=== PATIENT | male | born 1965 | race Caucasian/White ===

== ENCOUNTER → 2017-02-16 | Outpatient (CLI) | payer BC ==
[~2017-02-16] MED LIST: ALLO300T2 PO; ASPI1TAB83 PO; ATOR80TA PO; GLIM2TAB2 PO; LISI-461 PO; LORA10TA5 PO; MULTTAB58 PO; NITR0.4S UT; OMEGCAP2 PO
[2017-02-16 19:07] LABS: BASO % 0.6 %; BASO ABS # 0.06 K/uL (0-0.2); COMPLETE YES; EOS % 1.4 %; IG% 0.1 %; LYMPH % 25.2 %; LYMPH ABS # 2.53 K/uL (1.2-3.4); MEAN CELL VOLUME 93.6 fL (80-100); MEAN CORPUSCULAR HEMOGLOBIN 31.9 pg (25-34); MEAN CORPUSCULAR HGB CONC 34.1 g/dl (32-36); MEAN PLATELET VOLUME 10.6 fL (7.4-10.4); MONO % 6.1 %; NEUT % 66.6 %; PLATELET COUNT 193 K/uL (130-400); WHITE BLOOD COUNT 10.04 K/uL (4.8-10.8)
[2017-02-16 19:21] LABS: ALT/SGPT 48 U/L (12-78); AST/SGOT 21 U/L (15-37); BLOOD UREA NITROGEN 15 mg/dl (7-18); BUN/CREATININE RATIO 19.5 (10-20); CALCIUM 8.8 mg/dl (8.5-10.1); CARBON DIOXIDE 31 mmol/L (21-32); CHLORIDE 102 mmol/L (98-107); CREATININE 0.78 mg/dl (0.60-1.40); GLUCOSE 80 mg/dl (70-99); POTASSIUM 4.1 mmol/L (3.5-5.1); SODIUM 141 mmol/L (136-145)
[2017-02-16 19:26] LABS: ALB/GLOB RATIO 1.6 (0.9-2); ALKALINE PHOSPHATASE 83 U/L (45-117); CHOLESTEROL 112 mg/dl (0-200); CHOLESTEROL/HDL RATIO 2.3; HDL CHOLESTEROL 48 mg/dl; LDL CHOLESTEROL CALCULATED 48 mg/dl; PROSTATE SPECIFIC ANTIGEN 0.363 ng/ml (0.000-4.000); TRIGLYCERIDES 79 mg/dl (0-150); VERY LOW DENSITY LIPOPROT CALC 16 mg/dl
[2017-02-18 06:44] LABS: ESTIMATED AVERAGE GLUCOSE 134 mg/dl; HA1C FLAG Normal (Normal)
== END | disposition home or self-care (01) ==
LOC: C.LAB 18:10
PROVIDERS: ATTEND Internal Medicine
DX: D64.9 Anemia, unspecified (principal); I25.10 Atherosclerotic heart disease of native coronary artery without angina pectoris; E11.9 Type 2 diabetes mellitus without complications; Z12.5 Encounter for screening for malignant neoplasm of prostate

== ENCOUNTER → 2017-05-18 | Outpatient (CLI) | payer BC ==
[2017-05-18 10:50] LABS: BASO % 0.5 %; BASO ABS # 0.04 K/uL (0-0.2); COMPLETE YES; EOS % 3.2 %; IG% 0.1 %; LYMPH % 25.6 %; LYMPH ABS # 1.94 K/uL (1.2-3.4); MEAN CELL VOLUME 95.6 fL (80-100); MEAN CORPUSCULAR HEMOGLOBIN 31.3 pg (25-34); MEAN CORPUSCULAR HGB CONC 32.8 g/dl (32-36); MEAN PLATELET VOLUME 10.9 fL (7.4-10.4); MONO % 6.6 %; PLATELET COUNT 190 K/uL (130-400); WHITE BLOOD COUNT 7.57 K/uL (4.8-10.8)
[2017-05-18 11:08] LABS: ALT/SGPT 32 U/L (12-78); AST/SGOT 16 U/L (15-37); BLOOD UREA NITROGEN 19 mg/dl (7-18); BUN/CREATININE RATIO 25.9 (10-20); CALCIUM 8.8 mg/dl (8.5-10.1); CARBON DIOXIDE 28 mmol/L (21-32); CHLORIDE 107 mmol/L (98-107); CREATININE 0.74 mg/dl (0.60-1.40); GLUCOSE 85 mg/dl (70-99); SODIUM 140 mmol/L (136-145)
[2017-05-18 11:09] LABS: ESTIMATED AVERAGE GLUCOSE 128 mg/dl; HA1C FLAG Normal (Normal)
[2017-05-18 11:19] LABS: ALB/GLOB RATIO 1.5 (0.9-2); ALKALINE PHOSPHATASE 83 U/L (45-117)
[2017-05-18 11:23] LABS: RATIO 8.3 mcg/mg (0-30.0)
[2017-05-18 11:58] LABS: LYME DISEASE AB IGM NEG (NEG)
[2017-05-18 11:59] LABS: LYME DISEASE AB IGG NEG (NEG)
== END | disposition home or self-care (01) ==
LOC: C.LABBC 09:00
PROVIDERS: ATTEND Internal Medicine
DX: I10 Essential (primary) hypertension (principal); E11.9 Type 2 diabetes mellitus without complications; Z79.4 Long term (current) use of insulin; K76.0 Fatty (change of) liver, not elsewhere classified; D64.9 Anemia, unspecified

== ENCOUNTER → 2017-08-30 | Outpatient (CLI) | payer BC ==
--- NOTE | 2017-08-30 11:02 | DIAGNOSTIC IMAGING REPORT ---
R SHOULDER MIN 2 VIEWS ROUTINE HISTORY: 52 years-old Male Pain in right shoulderRight acute right shoulder pain without known injury COMPARISON: Chest radiograph 05/09/2015 TECHNIQUE: 3 views of the right shoulder FINDINGS: Prior median sternotomy. Surgical clips project over the right upper lobe. Soft tissues are unremarkable. There is mild acromioclavicular and glenohumeral osteoarthritis. No acute fracture or dislocation is identified. No definite intra-articular loose body. 4 mm corticated bony fragment inferior to the glenoid may reflect remote fracture or fragmented osteophyte. IMPRESSION: 1. Mild degenerative changes of the shoulder as above without acute fracture or dislocation. 2. 4 mm corticated bone fragment inferior to the glenoid may reflect remote bony Bankart or fragmented osteophyte. The above report was generated using voice recognition software. It may contain grammatical, syntax or spelling errors. Electronically signed by: Roberto Llanos M.D. 08/30/2017 11:01 AM Dictated Date/Time: 08/30/2017 10:59 AM
[2017-08-30 13:55] LABS: ESTIMATED AVERAGE GLUCOSE 134 mg/dl; HA1C FLAG Normal (Normal)
[2017-08-30 16:17] LABS: LYME DISEASE AB IGG NEG (NEG); LYME DISEASE AB IGM NEG (NEG)
== END | disposition home or self-care (01) ==
LOC: C.RADBC 10:33
PROVIDERS: ATTEND Nurse Practitioner Adult Health
DX: M25.511 Pain in right shoulder (principal); E11.9 Type 2 diabetes mellitus without complications; M79.1 Myalgia; M25.50 Pain in unspecified joint

== ENCOUNTER → 2017-09-04 | Outpatient (CLI) | payer BC ==
[2017-09-04 11:54] LABS: RHEUMATOID FACTOR < 10.0 U/mL (0-15)
== END | disposition home or self-care (01) ==
LOC: C.LABBC 07:03
PROVIDERS: ATTEND Nurse Practitioner Adult Health
DX: M79.1 Myalgia (principal); M25.50 Pain in unspecified joint

== ENCOUNTER 2023-04-30 05:58 | Observation (INO) ==
--- NOTE | 2023-04-18 12:12 | Anesthesiology Consultation ---
Date of Service April 18, 2023 Assessment & Plan (1) Encounter for pre-operative examination: Chart Review Chart Review: Acceptable Risk for Surgery and Patient NOT seen in Pre Admission Testing - Check BSG AM DOS -COVID screening: Per PAT nursing assessment on 04/18/23. No known COVID-19 positive contacts or current COVID-19 related symptoms. Travel screen negative. Patient vaccinated for Covid. At surgeon discretion if preop Covid testing being done. Cardiac letter 04/12/23= Moderate risk for cardiac complications during proposed surgery. Beta-blockers are to be continued during perioperative period. Continue aspirin 81 mg p.o. daily. Okay to hold Plavix x3 days prior to procedure. Resume as soon as possible after procedure per surgical team. (S urgeon continue ASA 81mg perioperatively pre records) Right knee arthroscopy 05/29/22= Done under [facility] with LMA #5. Atraumatic x 1 attempt History Surgery Operation Date: 04/30/23 12:20 Proposed Procedures p Hand Assisted Laparoscopic Nephrectomy - Right - Bennyer Wilfred Juarez MD Height/Weight Height: 5 ft 8 in Weight: 86.183 kg Allergies Allergy/AdvReac Type Severity Reaction Status Date / Time No Known Allergies Allergy Unknown Verified 04/18/23 10:55 Medications Home Medications Medication Instructions Recorded Confirmed Last Taken coenzyme Q10 100 mg capsule 200 mg PO BID 03/17/19 04/18/23 Unknown cyanocobalamin (vitamin B-12) 1,000 mcg PO QPM 03/17/19 04/18/23 05/28/22 1,000 mcg capsule multivitamin (Daily Multi-Vitamin 1 tab PO QPM 03/17/19 04/18/23 05/28/22 tablet) nitroglycerin 0.4 mg sublingual 0.4 mg sublingual Q5M PRN chest 03/17/19 04/18/23 Unknown tablet pain #100 tabs aspirin 81 mg tablet 81 mg PO QAM 12/20/19 04/18/23 05/28/22 cholecalciferol (vitamin D3) 50 5,000 unit PO QPM 10/02/21 04/18/23 Unknown mcg (2,000 unit) capsule loratadine 10 mg tablet 10 mg PO QAM 05/22/22 04/18/23 05/28/22 omega 9-eti-njk-fish oil 100 1 cap PO QAM 07/23/22 04/18/23 Unknown mg-160 mg-1,000 mg capsule (Fish Oil) empagliflozin 25 mg tablet 25 mg PO QAM #90 tabs 11/23/22 04/18/23 Unknown (Jardiance) metformin 1,000 mg tablet 1,000 mg PO BID #180 tabs 12/19/22 04/18/23 Unknown semaglutide 1 mg/dose (4 mg/3 mL) 1 mg (0.75 mL) subcut Q7D #9 mL 01/09/23 04/18/23 Unknown subcutaneous pen injector tadalafil 20 mg tablet (Cialis) 20 mg PO DAILY PRN sexual activity 01/21/23 0 04/18/23 Unknown #20 tabs FreeStyle Skylar 2 Sensor (flash #6 ea 02/01/23 Unknown glucose sensor) metoprolol tartrate 25 mg tablet 25 mg PO BID #180 tabs 02/22/23 04/18/23 Unknown duloxetine 20 mg capsule,delayed 20 mg PO QPM #90 caps 04/15/23 04/18/23 Unknown release allopurinol 300 mg tablet 300 mg PO QAM 04/18/23 04/18/23 Unknown atorvastatin 80 mg tablet 80 mg PO QAM 04/18/23 04/18/23 Unknown clopidogrel 75 mg tablet (Plavix) 75 mg PO QAM 04/18/23 04/18/23 Unknown ezetimibe 10 mg tablet 10 mg PO QAM 04/18/23 04/18/23 Unknown insulin NPH isoph U-100 human 100 30 unit subcut HS 04/18/23 04/18/23 Unknown unit/mL (3 mL) subcutaneous pen (Humulin N NPH U-100 Insulin KwikPen) omeprazole 40 mg capsule,delayed 40 mg PO QAM 04/18/23 04/18/23 Unknown release Past Medical History Medical History (Updated 04/18/23 @ 16:24 by Yolanda Shepherd PA-C) Anemia Arteriosclerotic cardiovascular disease s/p 2 stents 2004 s/p CABG x 3 around 2009 (previous stents in stent stenosis per patient) s/p ESTEFANY 09/19/2022 [facility] to [facility] Diabetes mellitus, type 2 IDDM- insulin pump in place Diabetic peripheral neuropathy GERD without esophagitis controlled, stable per pt Gout, joint History of COVID-winter - lost taste, smell, cold like symptoms, headache, fatigue - reso lved Hypertension controlled, stable per pt Immunotherapy currently having done at [facility] on a monthly schedule Mediastinal lymphadenopathy Metastatic cancer to lung following with Dr Condon and [facility] in [place], [place] Obesity (BMI 30.0-34.9) Obstructive sleep apnea cpap has since been recalled and patient reports he has lost ~30lbs and has since not been using. 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, 2022 Steatosis of liver Past Family History Family History Father Myocardial infarction, Onset Age: 36 Bladder cancer Brother Coronary heart disease Mother Coronary heart disease Diabetes Hypertension Atrial fibrillation Grandmother (Maternal) Colon obstruction Other Diabetes mellitus, type 2 Dyslipidemia Ovarian cancer Denies family history of Prostate cancer Lung cancer Colorectal cancer Past Surgical History Surgical History (Updated 04/18/23 @ 16:14 by Yolanda Shepherd PA-C) History of bronchoscopy with Dr Condon at [facility] History of cardiac cath Chest pain and SOB - transferred from [facility] at age 40 - [facility] - 2 stent placed History of cardiac cath September 2022 at [facility] with x1 stent placed. follows with Dr. Colón. History of coronary artery bypass graft 45 years old - triple bypass History of esophagogastroduodenoscopy (EGD) History of orthopedic surgery right femur repair at age 15 Hx of colonoscopy Hx of heart artery stent x2 right coronary artery - age 40 at [facility] x1 September 2022 at [facility]. Hx of tonsillectomy S/P ACL reconstruction p Right Knee Arthroscopy, Allograft Anterior Cruciate Ligament Reconstruction, Partial Medial Meniscectomy S/P rotator cuff repair left 09/2020 [facility]. Status post biopsy of kidney Fall 2021 with [facility] Social History Smoking Status: Never smoker Do You Dip or Chew Tobacco: No Hx Alcohol Use: Yes Alcohol type: beer and hard liquor alcohol intake frequency: holidays/special occasions only Hx Substance Use: No substance use type: does not use Testing Laboratory Results 04/10/23= URINE CULTURE: No growth- less than 1000 colonies/ml 04/08/23= WBC: 7.8 H/H: 15.6/48.0 PLATELETS: 204 SODIUM: 136 POTASSIUM: 4.8 CHLORIDE: 103 CO2: 31.0 BUN: 20.0 CREATININE: 0.90 GLUCOSE: 186 04/01/23= TSH: 1.580 FREE T4: 0.81 Electrocardiogram Date: 09/19/22 Findings: + NSR @ (60bpm) Cannot rule out anterior infarct, age undetermined Stress Test Date: 09/14/22 Type: nuclear Moderately abnormal MPI study Moderate sized ischemia in the mid to basal inferior segments Normal LV function with mid to basal inferior hypokinesis (Patient had subsequent cardiac catheterizationwith ESTEFANY placementsee below) Cardiac Catheterization Date: 09/19/22 33 bypass grafts patent (ALBRECHT to LAD; SVG to diagonal; free KASANDRA to PDA). Severe stenosis of proximal circumflex which was not grafted status post PCI successful with ESTEFANY to 0% residual. Normal left-sided filling pressure No aortic stenosis. Recommendations: Dual antiplatelet therapy for target at least 6 months if not longer Other Testing Chest CT 03/21/2023 = since November 2022no new suspicious findings in the chest. Unchanged right upper renal pole neoplasm.
[2023-04-30] MEDS ORDERED: LR 15ML/HR IV SCH (06:00)
[2023-04-30] MEDS ORDERED: DexMEDEtomidine HCL IV 100 MCG/ML VIAL IV ONE (06:51)
[2023-04-30] MEDS ORDERED: ONDANSETRON INJ 2 MG/ML 2 ML VIAL IV PRN ×2 (07:06→11:07)
[2023-04-30] MEDS ORDERED: ATROPINE SULFATE 0.1 MG/ML 10ML SYR IV PRN (07:06)
[2023-04-30] MEDS ORDERED: ePHEDrine sulfate 50 MG/ML AMP IV PRN (07:06)
[2023-04-30] MEDS ORDERED: MIDAZOLAM HCL 1 MG/ML 2ML VIAL ONE (07:08)
[2023-04-30] MEDS ORDERED: fentaNYL citrate PF 100 MCG/2 ML VIAL ONE ×2 (07:08→08:52)
[2023-04-30] MEDS ORDERED: ROCURONIUM BROMIDE 10 MG/ML 5 ML VIAL IV ONE ×3 (07:15→08:40)
--- NOTE | 2023-04-30 07:22 | History & Physical Bridge Note ---
Date of Service April 30, 2023 History & Physical Bridge Note I have examined the patient, reviewed the History & Physical and in the interval since the performance of the History & Physical I have noted the following changes of clinical significance: no changes noted
[2023-04-30] MEDS ORDERED: BUPIVACAINE 0.5 % 5 MG/1 ML MPF 30ML VIAL ONE (07:24)
[2023-04-30] MEDS ORDERED: ONDANSETRON INJ 2 MG/ML 2 ML VIAL ONE (08:40)
[2023-04-30] MEDS ORDERED: DEXAMETHASONE SOD INJ 4 MG/ML VIAL ONE (08:40)
[2023-04-30] MEDS ORDERED: GLYCOPYRROLATE 0.2 MG/ML VIAL ONE (08:40)
[2023-04-30] MEDS ORDERED: PROPOFOL IV EMULSION 10 MG/ML 20 ML VIAL IV ONE (08:40)
[2023-04-30] MEDS ORDERED: LIDOCAINE 2% 2 ML VIAL/AMP(20MG/ML) INFIL ONE (08:40)
[2023-04-30] MEDS ORDERED: SUGAMMADEX SODIUM 200 MG/2 ML VIAL IV ONE (09:14)
--- NOTE | 2023-04-30 09:55 | Operative Report ---
PG Post Operative Report Pre & Post Diagnosis Operation Date: 04/30/23 07:30 Pre-Op Diagnosis: Sarcomatoid Renal Cell Carcinoma Post-Op Diagnosis: Sarcomatoid Renal Cell Carcinoma I identified the patient and participated in the time-out.: Yes Procedure Operation Date: 04/30/23 07:30 Actual Procedures p Hand Assisted Laparoscopic Nephrectomy - Right(Right) - Natanael Juarez MD Surgeon Natanael Juarez MD Flat Grinder Operator Yolanda Fraser Estimated Blood Loss 25 Findings Consistent with Post-Op Diagnosis Specimens Right kidney Description of Procedure Patient was identified in the preoperative holding area appropriate informed consents reviewed and completed the patient was transferred to the operating suite. Upon arrival he received appropriate preoperative antibiotics and general anesthesia and was placed in a left side down right side up lateral decubitus position with the bed flexed. He was padded and braced appropriately. Gann catheter was inserted. I began the case by making incision in the right lower quadrant in the Hensley style. I carried this to the superficial tissue until identified the external oblique fascia. This was incised sharply and the incision through the fascia was carried through the full length of my skin incision. I then opened the internal oblique fascia followed by the transversalis fascia. The peritoneum was pierced sharply and a finger sweep performed. There were no adhesions or other abnormalities in this area. I opened the peritoneum for the length of the incision. A GelPort retractor was then placed. A 12 mm lap trocar was placed through the GelPort and insufflated some of the abdomen conducted. I placed 2 assisting 12 mm trocars along the lateral border of the rectus muscle in the upper portion of the right hemiabdomen. These were ultimately placed directly onto my hand. I also placed a 5 mm liver retraction port in the subxiphoid space. To begin the surgical portion of the case I used a harmonic scalpel to incise the white line of Toldt and medialized the colon. I incised the peritoneum lateral to the kidney and connected my to dissection planes at the superior margin of the kidney. I then kocherized the duodenum off the medial aspect of the kidney and expose the underlying IVC. Under the kidney I could identify the right gonadal vein draining into the IVC. I dissected just lateral to this on to the psoas muscle and used this plane to elevate the kidney and placed the hilar vessels on stretch. We dissected to the inferior aspect of the vein. The artery was just inferior to the vein was easily palpable. A staple load was placed across the vessels and fired. They were taken en bloc. A second staple load was fired just across the medial aspect of the upper portion of the kidney. I then encountered the adrenal gland and I included the majority of the adrenal gland with the specimen given the upper pole location of his tumor. I fired an additional staple load across the superior margin of the adrenal for hemostasis. I then continued to dissect through the remaining perinephric fat utilizing the harmonic scalpel. At the inferior pole of the kidney I dissected down to the ureter and transected it with the harmonic scalpel. The specimen was then removed. On preoperative imaging there is a question of an interaortocaval node. This was relatively small at 1.4 cm, however I was interested in trying to pursue this surgically. I dissected to the anterior surface of the cava in the interaortocaval space. I never encountered a swollen or palpably abnormal lymph node in this area. In turn, no lymph node specimen was collected. I confirmed excellent hemostasis in the surgical bed. I replaced the colon into the lateral aspect of the abdomen. We then closed the 212 mm observation assistant ports with a Wesley-Sunita device. The main incision was closed in multiple layers with 0 Vicryl through the peritoneum and transversalis fascia followed by 0 PDS through the internal and external oblique fascia as an individual layers. A 2-0 Vicryl was used through Gilbert's fascia. 4-0 Monocryl was used to close all skin incisions and all were infiltrated with half percent Marcaine for closure. Yolanda Fraser assisted from incision to closure. I attest to the content of the Intraoperative Record and any orders documented therein. Any exceptions are noted below.
[2023-04-30] MEDS: fentaNYL citrate PF 100 MCG/2 ML VIAL IV PRN ×4 (10:05→10:25)
--- NOTE | 2023-04-30 10:31 | Anesthesiology Progress Note ---
Date of Service April 30, 2023 Anesthesia Post Procedure Vital Signs Vital Signs: Temp Pulse Pulse Resp BP Pulse Ox O2 Del Method 04/30/23 10:20 65 22 163/94 H 93 Nasal Cannula 04/30/23 10:10 66 22 161/89 H 94 Nasal Cannula 04/30/23 10:00 63 22 163/89 H 98 Oxymask 04/30/23 09:53 36 C L 64 16 153/91 H 98 Oxymask 04/30/23 06:19 Room Air 04/30/23 06:19 36.5 C 53 L 20 143/92 H 97 Room Air O2 Flow Rate 04/30/23 10:20 3 04/30/23 10:10 3 04/30/23 10:00 6 04/30/23 09:53 9 04/30/23 06:19 04/30/23 06:19 Pain Intensity Abdomen: Pain Intensity: 7 Transfer of Care Handoff Completed per policy Notes Mental Status: alert / awake / arousable and participated in evaluation Patient Amnestic to Procedure: Yes Nausea / Vomiting: adequately controlled Pain: adequately controlled Airway Patency, RR, SpO2: stable & adequate BP & HR: stable & adequate Hydration State: stable & adequate Anesthetic Complications: no major complications apparent and Pt Satisfied with anesthetic care
[2023-04-30 10:36] LABS: Basophils # (auto) 0.06 K/uL (0-0.2); Basophils % (auto) 0.5 %; Eosinophils # (auto) 0.12 K/uL (0-0.50); Eosinophils % (auto) 0.9 %; Hematocrit (blood only) 43.8 % (42.0-52.0); Hemoglobin 14.6 g/dl (14.0-18.0); Immature Granulocytes # (auto) 0.05 K/uL (0.01-0.20); Immature Granulocytes % (auto) 0.4 %; Lymphocytes # (auto) 1.38 K/uL (1.2-3.4); Lymphocytes % (auto) 10.6 %; Mean Corpuscular Hemoglobin 31.5 pg (25.0-34.0); Mean Corpuscular Hgb Conc 33.3 g/dL (32.0-36.0); Mean Corpuscular Volume 94.6 fL (80.0-100.0); Mean Platelet Volume 10.1 fL (9.4-12.4); Monocytes # (auto) 0.34 K/uL (0.11-0.59); Monocytes % (auto) 2.6 %; Neutrophils # (auto) 11.06 K/uL (1.40-6.50); Platelet Count 179 K/uL (130-400); RDW Coefficient of Variation 13.6 % (11.5-14.5); RDW Standard Deviation 47.5 fL (36.4-46.3); Red Blood Count 4.63 M/uL (4.70-6.10); White Blood Count 13.01 K/ul (4.8-10.8)
[2023-04-30 10:45] LABS: BUN Creatinine Ratio 24.7 (10-20); Calcium 8.6 mg/dl (8.6-10.3); Creatinine Clr Calc Pharmacy 104.7 ml/min; Est GFR (African American) 112.1 ml/min; Est GFR (Non-African American) 96.7 ml/min; Potassium 4.5 mmol/L (3.5-5.1)
[2023-04-30] MEDS: HYDROmorphone INJ 2 MG/ML SYR/VIAL IV PRN ×2 (10:53→10:58)
[2023-04-30] MEDS ORDERED: NITROGLYCERIN SL 0.4 MG/TAB TAB SL PRN (11:07)
[2023-04-30] MEDS ORDERED: MoRPHine SULFATE 2 MG/ML CARP IV PRN (11:07)
[2023-04-30] MEDS ORDERED: oxyCODONE HCL IR 5 MG TAB (IMMEDIATE RELEASE) PO PRN (11:07)
[2023-04-30] MEDS: LACTATED RINGER'S 1,000 ML IV SCH ×2 (11:42→21:20)
[2023-04-30] MEDS: MoRPHine SULFATE 4 MG/ML 1 ML CARP\\VIAL IV PRN ×4 (11:45→22:58)
[2023-04-30] MEDS: oxyCODONE HCL IR 5 MG TAB (IMMEDIATE RELEASE) PO PRN ×3 (12:23→21:14)
[2023-04-30] MEDS: ACETAMINOPHEN 325 MG TAB PO SCH ×3 (13:28→23:01)
[2023-04-30] MEDS ORDERED: PHARMACY GLYCEMIC MGMT CONSULT PRN (15:05)
[2023-04-30] MEDS ORDERED: COUGH DROP (SUGAR FREE) LOZ 24 LOZ/1 BOX BUCCAL PRN (15:09)
[2023-04-30] MEDS ORDERED: COUGH DROP (SUGAR FREE) LOZ 24 LOZ/1 BOX BUCCAL ONE (15:19)
[2023-04-30] MEDS: ceFAZolin 2000MG 2,000 MG/15 ML SYR IV SCH ×2 (15:48→23:01)
[2023-04-30] MEDS ORDERED: DEXTROSE 50% 50 ML SYRINGE IV PRN (16:15)
[2023-04-30] MEDS ORDERED: CARBOHYDRATES FOR HYPOGLYCEMIA PO PRN (16:15)
[2023-04-30] MEDS ORDERED: GLUCOSE 10 TAB/TUBE PO PRN (16:15)
[2023-04-30] MEDS ORDERED: GLUCOSE 40% GEL 15 GM TUBE PO PRN (16:15)
[2023-04-30] MEDS ORDERED: GLUCAGON FOR INJ 1 MG VIAL IM PRN (16:15)
[2023-04-30] MEDS: INSULIN ASPART PER UNIT CHARGE SC SCH ×2 (17:37→21:13)
[2023-04-30] MEDS ORDERED: LANTUS PER UNIT CHARGE SC STA (21:00)
[2023-04-30] MEDS: HEPARIN SOD 5,000 UNIT/0.5 ML VIAL SQ SCH (21:16)
[2023-04-30] MEDS: MULTIVITAMIN TAB PO SCH (21:16)
[2023-04-30] MEDS: DULoxetine HCL 20 MG CAP PO SCH (21:17)
[2023-04-30] MEDS: DOCUSATE SODIUM 100 MG CAP PO SCH (21:17)
[2023-04-30] MEDS: METOPROLOL TARTRATE 25 MG TAB PO SCH (21:17)
[2023-05-01] MEDS: MoRPHine SULFATE 4 MG/ML 1 ML CARP\\VIAL IV PRN (04:22)
[2023-05-01] MEDS: ACETAMINOPHEN 325 MG TAB PO SCH ×3 (05:31→17:59)
[2023-05-01] MEDS: oxyCODONE HCL IR 5 MG TAB (IMMEDIATE RELEASE) PO PRN ×3 (05:31→14:42)
[2023-05-01] MEDS: LACTATED RINGER'S 1,000 ML IV SCH (07:30)
--- NOTE | 2023-05-01 08:04 | Pharmacy Report ---
Pharmacy Glycemic Short Note 2 - Date of Service May 01, 2023 - Glycemic Short BSG Results (Last 24 hours): 04/30/23 04/30/23 04/30/23 08:30 09:56 10:16 Glucose 194 H POC Glucose 138 H 182 H 04/30/23 04/30/23 04/30/23 12:07 16:45 20:45 Glucose POC Glucose 159 H 175 H 149 H OUTPATIENT ANTIDIABETIC REGIMEN: * jardiance 25 mg daily, NPH 30 units HS, metformin 1 gm bid, ozempic ASSESSMENT: * 57 year old now s/p nephrectomy - POD 1. Pharmacy consulted for glycemic management. Novolog stress of 2 dosing started postop * Received reduced dose of basal last evening due to limited PO intake. Will continue with scale for basal at HS until better PO intake PLAN FOR INPATIENT GLYCEMIC CONTROL: * Hold outpatient oral diabetes medications * Basal insulin * Lantus 10-15 units SQ HS * Bolus insulin * NovoLog per scale ACHS or Q6hrs while NPO * Goal Range: Low 110 mg/dL - High 140 mg/dL * Correction Factor: 25 mg/dL/unit * Nutritional / Prandial insulin per carb ratio of 1 unit per 9 grams CHO consumed
[2023-05-01 08:38] LABS: Basophils # (auto) 0.02 K/uL (0-0.2); Basophils % (auto) 0.2 %; Eosinophils # (auto) 0.03 K/uL (0-0.50); Eosinophils % (auto) 0.3 %; Hematocrit (blood only) 40.1 % (42.0-52.0); Hemoglobin 13.4 g/dl (14.0-18.0); Immature Granulocytes # (auto) 0.03 K/uL (0.01-0.20); Immature Granulocytes % (auto) 0.3 %; Lymphocytes # (auto) 0.96 K/uL (1.2-3.4); Lymphocytes % (auto) 10.3 %; Mean Corpuscular Hemoglobin 31.2 pg (25.0-34.0); Mean Corpuscular Hgb Conc 33.4 g/dL (32.0-36.0); Mean Corpuscular Volume 93.5 fL (80.0-100.0); Mean Platelet Volume 10.3 fL (9.4-12.4); Monocytes # (auto) 0.94 K/uL (0.11-0.59); Monocytes % (auto) 10.1 %; Neutrophils # (auto) 7.33 K/uL (1.40-6.50); Neutrophils % (auto) 78.8 %; Platelet Count 160 K/uL (130-400); RDW Coefficient of Variation 13.8 % (11.5-14.5); RDW Standard Deviation 47.8 fL (36.4-46.3); Red Blood Count 4.29 M/uL (4.70-6.10); White Blood Count 9.31 K/ul (4.8-10.8)
[2023-05-01 08:50] LABS: BUN Creatinine Ratio 18.8 (10-20); Calcium 8.7 mg/dl (8.6-10.3); Creatinine Clr Calc Pharmacy 92.7 ml/min; Est GFR (African American) 101.3 ml/min; Est GFR (Non-African American) 87.4 ml/min; Potassium 4.3 mmol/L (3.5-5.1)
[2023-05-01] MEDS: DOCUSATE SODIUM 100 MG CAP PO SCH ×2 (08:55→21:06)
[2023-05-01] MEDS: METOPROLOL TARTRATE 25 MG TAB PO SCH ×2 (08:55→21:08)
[2023-05-01] MEDS: PANTOprazole 40 MG TAB PO SCH (08:56)
[2023-05-01] MEDS: ASPIRIN 81 MG ECTAB PO SCH (08:56)
[2023-05-01] MEDS: ATORVASTATIN 40 MG TAB PO SCH (08:56)
[2023-05-01] MEDS: allopurinoL 300 MG TAB PO SCH (08:56)
[2023-05-01] MEDS: LORATADINE 10 MG TAB PO SCH (08:56)
[2023-05-01] MEDS: EZETIMIBE 10 MG TABLET PO SCH (08:56)
[2023-05-01] MEDS: CHOLECALCIFEROL 5,000 UNITS 125 MCG TAB PO SCH (08:57)
[2023-05-01] MEDS: HEPARIN SOD 5,000 UNIT/0.5 ML VIAL SQ SCH ×2 (08:58→21:06)
[2023-05-01] MEDS: INSULIN ASPART PER UNIT CHARGE SC SCH ×4 (09:07→21:07)
--- NOTE | 2023-05-01 12:30 | Urology Progress Note ---
Date of Service May 01, 2023 Assessment & Plan (1) Sarcomatoid renal cell carcinoma: Plan Status post right radical nephrectomy Progressing appropriately Creatinine is excellent at 0.96, very good urine output Plan for discharge home later today Admission and Anticipated Discharge Date Admission Date: April 30, 2023 Subjective Did very well overnight Expected levels of pain Has been ambulatory Excellent urine output Creatinine 0.96 Stable for discharge home today Physical Exam Physical Exam: Incisions appropriate Abdomen soft Clear urine Results & Data Vital Signs (Past 12 Hours) Vital Signs Temp Pulse Pulse Resp BP Pulse Ox O2 Del Method 05/01/23 07:15 36.5 C 58 L 16 138/82 94 Room Air 05/01/23 02:38 36.4 C L 60 16 148/80 H 96 Room Air PG Care Time/CCT Total # of Minutes Spent Total Time Spent with Patient: Total time spent is greater than 50% in coordination of care (as documented) at patient's floor/unit and/or counseling patient: Coding Level of Care Code None Diagnoses Sarcomatoid renal cell carcinoma C64.9
[2023-05-01] MEDS ORDERED: KETOROLAC TROMETHAMINE 15 MG/ML VIAL IV ONE (15:47)
[2023-05-01] MEDS ORDERED: LANTUS PER UNIT CHARGE SC SCH (21:00)
[2023-05-01] MEDS: MULTIVITAMIN TAB PO SCH (21:06)
[2023-05-01] MEDS: DULoxetine HCL 20 MG CAP PO SCH (21:06)
[2023-05-02] MEDS: ACETAMINOPHEN 325 MG TAB PO SCH ×3 (03:20→12:46)
[2023-05-02] MEDS: MoRPHine SULFATE 4 MG/ML 1 ML CARP\\VIAL IV PRN (04:39)
[2023-05-02 07:41] LABS: Basophils # (auto) 0.04 K/uL (0-0.2); Basophils % (auto) 0.5 %; Eosinophils % (auto) 2.5 %; Hematocrit (blood only) 35.1 % (42.0-52.0); Hemoglobin 11.9 g/dl (14.0-18.0); Immature Granulocytes # (auto) 0.02 K/uL (0.01-0.20); Immature Granulocytes % (auto) 0.3 %; Lymphocytes # (auto) 1.35 K/uL (1.2-3.4); Lymphocytes % (auto) 17.1 %; Mean Corpuscular Hemoglobin 31.2 pg (25.0-34.0); Mean Corpuscular Hgb Conc 33.9 g/dL (32.0-36.0); Mean Corpuscular Volume 92.1 fL (80.0-100.0); Mean Platelet Volume 10.9 fL (9.4-12.4); Monocytes # (auto) 0.78 K/uL (0.11-0.59); Monocytes % (auto) 9.9 %; Neutrophils # (auto) 5.52 K/uL (1.40-6.50); Neutrophils % (auto) 69.7 %; Platelet Count 142 K/uL (130-400); RDW Standard Deviation 47.5 fL (36.4-46.3); Red Blood Count 3.81 M/uL (4.70-6.10); White Blood Count 7.91 K/ul (4.8-10.8)
[2023-05-02 08:05] LABS: BUN Creatinine Ratio 19.8 (10-20); Calcium 8.7 mg/dl (8.6-10.3); Est GFR (African American) 89.9 ml/min; Est GFR (Non-African American) 77.5 ml/min; Potassium 4.1 mmol/L (3.5-5.1)
[2023-05-02] MEDS: INSULIN ASPART PER UNIT CHARGE SC SCH ×2 (09:08→12:37)
--- NOTE | 2023-05-02 09:09 | Urology Progress Note ---
Date of Service May 02, 2023 Assessment & Plan (1) Renal mass, right: (2) Sarcomatoid renal cell carcinoma: Plan: - Patient POD#2 s/p right nephrectomy for renal malignancy - Doing well, progressing as expected - Afebrile with stable vitals - Labs reviewed - creatinine 1.06, WBC 7.91, Hgb 11.9 - Some discomfort near incisions as expected - adequate pain control with current regimen - Tolerating PO diet - Ambulating without difficulty - Incisions appropriate, some surrounding ecchymosis - Voiding well after catheter removal - Expected clinical course reviewed, all questions answered - Anticipate discharge to home later today - Outpatient follow-ups in place Admission and Anticipated Discharge Date Admission Date: April 30, 2023 Subjective Patient seen and examined at bedside this morning. No acute issues overnight. Discomfort near incisions as expected, relieved with analgesia as needed. Tolerating PO diet. Voiding well since catheter removal. Ambulating without issues. Denies nausea, vomiting, fever or chills. Review of Systems Constitutional: as per Subjective / HPI Gastrointestinal: as per Subjective / HPI Genitourinary: + as per Subjective / HPI Physical Exam Physical Exam: General: well-appearing, no acute distress HEENT: Normocephalic, mucous membranes moist Pulmonary: Nonlabored respirations Abdomen: Nondistended, soft Extremities: Moves all 4 spontaneously Neuro: No gross deficits Psych: alert and oriented, normal mood Skin: Incisions C/D/I with dermabond. Ecchymosis of lateral incision. Results & Data Vital Signs (Past 12 Hours) Vital Signs Temp Pulse Resp BP Pulse Ox O2 Del Method 05/02/23 07:20 36.6 C 67 16 121/75 95 Room Air 05/01/23 21:16 36.9 C 53 L 16 122/74 95 Room Air PG Care Time/CCT Total # of Minutes Spent Total Time Spent with Patient: Total time spent is greater than 50% in coordination of care (as documented) at patient's floor/unit and/or counseling patient: Coding Level of Care Code None Diagnoses Renal mass, right N28.89 Sarcomatoid renal cell carcinoma C64.9
[2023-05-02] MEDS: allopurinoL 300 MG TAB PO SCH (09:10)
[2023-05-02] MEDS: ASPIRIN 81 MG ECTAB PO SCH (09:11)
[2023-05-02] MEDS: ATORVASTATIN 40 MG TAB PO SCH (09:11)
[2023-05-02] MEDS: CHOLECALCIFEROL 5,000 UNITS 125 MCG TAB PO SCH (09:12)
[2023-05-02] MEDS: DOCUSATE SODIUM 100 MG CAP PO SCH (09:12)
[2023-05-02] MEDS: EZETIMIBE 10 MG TABLET PO SCH (09:13)
[2023-05-02] MEDS: PANTOprazole 40 MG TAB PO SCH (09:14)
[2023-05-02] MEDS: LORATADINE 10 MG TAB PO SCH (09:14)
[2023-05-02] MEDS: METOPROLOL TARTRATE 25 MG TAB PO SCH (09:14)
[2023-05-02] MEDS: HEPARIN SOD 5,000 UNIT/0.5 ML VIAL SQ SCH (09:15)
[2023-05-02] MEDS ORDERED: bisacodyL 5 MG TABEC PO ONE (11:27)
[2023-05-02] MEDS ORDERED: KETOROLAC TROMETHAMINE 15 MG/ML VIAL IV ONE (12:20)
--- NOTE | 2023-05-02 12:41 | Discharge Summary ---
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 Admission Exam Per Admitting Provider Constitutional well developed and well nourished Neck neck nontender Respiratory normal respiratory effort; no respiratory distress and does not use accessory muscles Cardiovascular Rate/Rhythm: regular rate Vessels: radial pulses present Extremities: no edema Gastrointestinal (Abdomen) Inspection/Auscultation: abdomen normal to inspection Percussion/Palpation: abdomen soft; abdomen nontender and no guarding Musculoskeletal Head/Neck/Chest: normocephalic and head atraumatic Extremities: extremities normal to inspection Skin no rashes and no lesions Trauma: no evidence of skin trauma Neurologic awake; not obtunded Speech / Cognition: normal speech Motor/Sensory: no tremor Psychiatric Orientation: alert and oriented x 3 Genitourinary no CVA tenderness Lymphatic no lymphadenopathy Principal Diagnosis Sarcomatoid renal cell carcinoma Discharge Exam General: well-appearing, no acute distress HEENT: Normocephalic, mucous membranes moist Pulmonary: Nonlabored respirations Abdomen: Nondistended, soft Extremities: Moves all 4 spontaneously Neuro: No gross deficits Psych: alert and oriented, normal mood Skin: Incisions C/D/I with dermabond. Ecchymosis of lateral incision. Discharge Data Allergies Allergy/AdvReac Type Severity Reaction Status Date / Time No Known Allergies Allergy Unknown Verified 04/30/23 06:14 Procedures Performed Operation Date: 04/30/23 07:30 Actual Procedures p Hand Assisted Laparoscopic Nephrectomy - Right(Right) - Natanael Juarez MD Hospital Course (1) Renal mass, right: (2) Sarcomatoid renal cell carcinoma: - Patient POD#2 s/p right nephrectomy for renal malignancy - Doing well, progressing as expected - Afebrile with stable vitals - Labs reviewed - creatinine 1.06, WBC 7.91, Hgb 11.9 - Some discomfort near incisions as expected - adequate pain control with current regimen - Tolerating PO diet - Ambulating without difficulty - Incisions appropriate, some surrounding ecchymosis - Voiding well after catheter removal - Expected clinical course reviewed, all questions answered - Anticipate discharge to home later today - Outpatient follow-ups in place - Okay to resume Plavix after discharge per Dr. Juarez - BMP and CBC already scheduled next week through his oncologist Total Time Total Time Spent Total Time Spent (In Minutes): 29 Discharge Plan Discharge Items Patient Disposition: Home - Self-Care Reason For Visit: Sarcomatoid Renal Cell Carcinoma Discharge Diagnosis: Sarcomatoid renal cell carcinoma Activity: Per Instructions section Lifting: No more than 10 pounds Bathing Comment: Okay to shower after discharge Sexual Activity: Wait until after follow-up appointment Exercise/Sports: Wait until after follow-up appointment Driving/Machine Use: No driving while taking prescription pain medication Non-emergency contact: Surgeon and Urologist Call non-emergency contact if: your pain is not controlled, your temperature is above 101, your wound has increased redness, your wound has increased drainage and your wound pain has increased Follow-up/Referrals: Natanael Juarez MD [Physician] - 05/13/23 8:15 am Yolanda Jackson, [Primary Care Provider] - Diet: Carb Consistent or DM2 Addtl Attending Provider Instructions: Please take all medications as prescribed and keep all follow-ups as scheduled. Please call our office at [phone] with any questions, concerns or need to reschedule appointments for any reason. We are happy to assist you. Okay to restart Plavix at home. Recovering at home: We recommend having someone with you for the first few days after surgery to help care for you. It is okay to shower tomorrow. Please avoid swimming, bathing or using hot tub until incisions are well healed. Avoid driving until you are not requiring pain medication any further. Walk at least a few times a day. Increase your distance, as you feel able. Stairs in your home are okay. Please avoid strenuous or sexual activity until your follow-up. We recommend using stool softener (i.e. Colace) to prevent constipation and straining, especially the first two weeks post operatively. Call [facility] [place] [facility] at [phone] if you experience: Chest pain or trouble breathing (call 127 or go to the hospital). Fever of 101F or higher Symptoms of infection at incision site, including redness or swelling, warmth, or bad-smelling drainage If you have catheter, and you notice: o Bloody urine or drainage that is dark red or has large clots (Please remember a small amount of blood is normal) o No drainage from the catheter for more than 6 hours o The catheter comes out of your bladder Pain that is not controlled with medicines Pending Studies at Discharge: Yes Studies:: pathology Stand-Alone Forms: My [facility] iRx Reminder, Smoking Cessation Medications and DC Order Prescriptions: New docusate sodium [Colace] 100 mg capsule 100 mg PO BID Qty: 60 0RF Rx Instructions: Take twice daily for 2 weeks, then as needed for constipation. oxycodone-acetaminophen 7.5-325 mg tablet 1 tab PO Q8H PRN (Reason: pain) Qty: 14 0RF Continued Jardiance 25 mg tablet 25 mg PO QAM Qty: 90 1RF metformin 1,000 mg tablet 1,000 mg PO BID Qty: 180 3RF semaglutide 1 mg/dose (4 mg/3 mL) pen injector 1 mg subcut Q7D Qty: 9 3RF (DME) [employer] Skylar 2 Sensor Kit See Rx Instructions .Route Qty: 6 3RF Rx Instructions: change every 14 days metoprolol tartrate 25 mg tablet 25 mg PO BID Qty: 180 3RF duloxetine 20 mg capsule,delayed release(DR/EC) 20 mg PO QPM Qty: 90 1RF tadalafil [Cialis] 20 mg tablet 20 mg PO DAILY PRN (Reason: sexual activity) Qty: 20 11RF Rx Instructions: administer approximately 30min before sexual activity; do not use more than 1 dose per 24hrs cholecalciferol (vitamin D3) 50 mcg (2,000 unit) capsule 5,000 unit PO QPM Fish Oil 100-160-1,000 mg capsule 1 cap PO QAM coenzyme Q10 100 mg capsule 200 mg PO BID multivitamin [Daily Multi-Vitamin] tablet 1 tab PO QPM nitroglycerin 0.4 mg tablet, sublingual 0.4 mg SL Q5M PRN (Reason: chest pain) Qty: 100 cyanocobalamin (vitamin B-12) 1,000 mcg capsule 1,000 mcg PO QPM aspirin 81 mg tablet 81 mg PO QAM loratadine 10 mg tablet 10 mg PO QAM atorvastatin 80 mg tablet 80 mg PO QAM Rx Instructions: TAKE 1 TABLET DAILY clopidogrel [Plavix] 75 mg tablet 75 mg PO QAM omeprazole 40 mg capsule,delayed release(DR/EC) 40 mg PO QAM Rx Instructions: TAKE 1 CAPSULE DAILY allopurinol 300 mg tablet 300 mg PO QAM Rx Instructions: TAKE 1 TABLET DAILY ezetimibe 10 mg tablet 10 mg PO QAM Rx Instructions: TAKE 1 TABLET DAILY Humulin N NPH Insulin KwikPen 100 unit/mL (3 mL) insulin pen 30 unit SQ HS Discharge Orders: Discharge Order (Routine); Ordered 05/02/23 Ordered By: Yolanda Tong/Other Patient Handouts: Nephrectomy Dc Admission Data Admit Date/Time: 04/30/23 09:50 Attending Provider: Natanael Juarez Admit Provider: Natanael Juarez Primary Care Provider: Yolanda Jackson Other Interventions: Discharge Summary Assessment (RN) Last Done: 05/02/23 13:36 Coding Level of Care Code 39561 IN/OBS DISCH 30 MIN/LESS Diagnoses Renal mass, right N28.89 Sarcomatoid renal cell carcinoma C64.9 Time Spent (min) 29
[2023-05-02] MEDS ORDERED: LANTUS PER UNIT CHARGE SC SCH (21:00)
== END 2023-05-02 13:55 | disposition home or self-care (01) | DRG 658 ==
LOC: ASU 05:58 → 3N 09:50 → INTOOBSV 09:50